=== PATIENT | female | born 2000 | race Caucasian/White ===

== ENCOUNTER 2023-08-03 00:03 | Inpatient (IN) | payer BC, MEDICAID ==
[2023-08-03 00:45] LABS: APPEARANCE,URINE CLEAR (Clear); BILIRUBIN,URINE NEGATIVE (Negative); COLOR,URINE YELLOW (Yellow); GLUCOSE,URINE NEGATIVE (Negative); KETONES,URINE NEGATIVE (Negative); LEUKOCYTE ESTERASE,URINE NEGATIVE (Negative); NITRITE,URINE NEGATIVE (Negative); OCCULT BLOOD,URINE TRACE-INTACT (Negative); PROTEIN,URINE NEGATIVE (Negative); UROBILINOGEN,URINE 0.2 (0.2-1.0)
[2023-08-03 00:58] LABS: EPITHELIAL CELLS,URINE 0-5 /hpf (0-5); RBC,URINE NOT SEEN /hpf (0-5); WBC,URINE 0-5 /hpf (0-5)
[2023-08-03 00:59] LABS: BACTERIA,URINE FEW /hpf (FEW); MUCUS,URINE NOT SEEN /hpf (FEW)
[2023-08-03] MEDS ORDERED: ceFAZolin 2 GM in Sodium Chloride 0.9% 50 ML IV ONE (01:18)
[2023-08-03] MEDS ORDERED: Ondansetron 4 MG/2 ML SDV IVPUSH PRN (01:18)
[2023-08-03] MEDS ORDERED: Lidocaine 1% 50 ML MDV INJECT PRN (01:18)
[2023-08-03] MEDS ORDERED: Sodium Chloride 0.9% 10 ML Syringe FLUSH PRN (01:18)
[2023-08-03] MEDS ORDERED: Lactated Ringers 1,000 ML IV SCH (01:30)
[2023-08-03] MEDS ORDERED: Oxytocin/Lactated Ringers 30 UNIT/500 ML BAG IV SCH ×2 (01:30→04:48)
[2023-08-03 01:44] LABS: BASOPHILS PERCENT AUTO 0.3 % (0.0-1.0); EOSINOPHILS PERCENT AUTO 0.1 % (0.0-6.0); HEMATOCRIT 35.1 % (37.0-47.0); HEMOGLOBIN 11.7 gm/dl (12.0-16.0); IMMATURE GRAN PERCENT AUTO 0.8 % (0.0-0.4); LYMPHOCYTES ABSOLUTE AUTO 3.5 K/mm3 (1.0-4.8); LYMPHOCYTES PERCENT AUTO 27.1 % (24.0-44.0); MEAN CORPUSCULAR HEMOGLOBIN 28.7 pg (28.0-32.0); MEAN CORPUSCULAR HGB CONC 33.3 g/dl (32.0-36.0); MEAN PLATELET VOLUME 9.7 fl (9.4-12.3); MONOCYTES ABSOLUTE AUTO 1.1 K/mm3 (0.0-0.8); MONOCYTES PERCENT AUTO 8.5 % (0.0-8.0); NEUTROPHILS ABSOLUTE AUTO 8.1 K/mm3 (1.8-7.7); NEUTROPHILS PERCENT AUTO 63.2 % (41.0-71.0); PLATELET COUNT,PLT 218 K/mm3 (150-400); RED BLOOD CELL COUNT 4.08 M/mm3 (4.10-5.30); WHITE BLOOD CELL COUNT,WBC 12.81 K/mm3 (3.9-11.3)
[2023-08-03] MEDS: Nalbuphine HCl 10 MG/ 1ML Amp IVPUSH PRN ×2 (03:58→07:23)
[2023-08-03] MEDS ORDERED: ceFAZolin 1 GM in Sodium Chloride 0.9% 100 ML IV SCH (06:00)
[2023-08-03] MEDS ORDERED: Sodium Chloride 0.9% 10 ML Syringe FLUSH SCH (09:00)
[2023-08-03] MEDS ORDERED: diphenhydrAMINE 50 MG/ML SDV IVPUSH PRN (09:04)
[2023-08-03] MEDS ORDERED: fentaNYL 100 MCG/2 ML SDV EPIDUR PRN (09:04)
[2023-08-03] MEDS ORDERED: ePHEDrine 50 MG/ML SDV IVPUSH PRN (09:04)
[2023-08-03] MEDS ORDERED: Bupivacaine/fentaNYL/NS 100 ML Bag EPIDUR PRN (09:04)
[2023-08-03] MEDS ORDERED: Benzocaine/Menthol 20%-0.5% Spray 78 GM Cannister TOP PRN (11:02)
[2023-08-03] MEDS ORDERED: Hydrocortisone Acetate 25 MG Supp RECTAL PRN (11:02)
[2023-08-03] MEDS ORDERED: Witch Hazel Medicated Pads 40/Jar TOP PRN (11:02)
[2023-08-03] MEDS ORDERED: Docusate Sodium 100 MG Cap PO PRN (11:02)
[2023-08-03] MEDS ORDERED: Magnesium Hydroxide 400 MG/5 ML Susp 30 ML Cup PO PRN (11:02)
[2023-08-03] MEDS: Ibuprofen 600 MG Tab PO PRN ×2 (17:49→22:49)
[2023-08-03] MEDS: Acetaminophen 325 MG Tab PO PRN (20:32)
[2023-08-03] MEDS ORDERED: Sertraline 50 MG Tab PO SCH (21:00)
[2023-08-04] MEDS: Acetaminophen 325 MG Tab PO PRN (02:37)
[2023-08-04] MEDS: Ibuprofen 600 MG Tab PO PRN (07:04)
[2023-08-04] MEDS ORDERED: Prenatal Multivitamin with Calcium/Folic Acid/Iron Tab PO SCH (09:00)
[2023-08-04] MEDS ORDERED: Sertraline 50 MG Tab PO SCH (09:00)
== END 2023-08-04 13:26 | disposition home or self-care (01) | DRG 560 ==
LOC: JD.OBCHECK 00:03 → JD.OB 00:06 → JD.OBCHECK 09:49
PROVIDERS: ADMIT Obstetrics & Gynecology; ATTEND Obstetrics & Gynecology
PROC: 10E0XZZ Delivery of Products of Conception, External Approach (ICD-10-PCS; principal; 2023-08-03)
PROC: 10907ZC Drainage of Amniotic Fluid, Therapeutic from Products of Conception, Via Natural or Artificial Opening (ICD-10-PCS; 2023-08-03)
PROC: 3E033VJ Introduction of Other Hormone into Peripheral Vein, Percutaneous Approach (ICD-10-PCS; 2023-08-03)
PROC: 0KQM0ZZ Repair Perineum Muscle, Open Approach (ICD-10-PCS; 2023-08-03)
DX: O42.02 Full-term premature rupture of membranes, onset of labor within 24 hours of rupture (principal); O77.0 Labor and delivery complicated by meconium in amniotic fluid; Z37.0 Single live birth; O70.1 Second degree perineal laceration during delivery; O99.824 Streptococcus B carrier state complicating childbirth; Z3A.38 38 weeks gestation of pregnancy; O99.344 Other mental disorders complicating childbirth; F41.9 Anxiety disorder, unspecified; F32.A Depression, unspecified; Z86.32 Personal history of gestational diabetes; O99.214 Obesity complicating childbirth; O99.354 Diseases of the nervous system complicating childbirth; G43.909 Migraine, unspecified, not intractable, without status migrainosus; Z88.0 Allergy status to penicillin
CPT/HCPCS: 36415; 51701; 59025; 59409; 81001; 84112; 85025; 86592; 86850; 86900; 86901; A9270-GY; J0690; J2300; J2590; J3010; J3490; J7120; J7999